=== PATIENT | female | born 2000 | race Caucasian/White ===

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

== ENCOUNTER 2018-08-25 11:40 | Emergency (ER) | payer OTHER ==
[2018-08-25 12:03] VITALS: BP 104/64; PULSE 92; TEMP 98.7; BMI 27.1
--- NOTE | 2018-08-25 12:21 | PDOC ---
History of Present Illness - General Chief Complaint: Vaginal Bleeding Stated Complaint: VAGINAL BLEEDING/POSTIVE PREG Time Seen by Provider: 08/25/18 12:21 History Source: Patient Exam Limitations: No Limitations - History of Present Illness Initial Comments: 08/25/18 12:38 CHIEF COMPLAINT: Vaginal bleeding HISTORY OF PRESENT ILLNESS: This is an otherwise healthy 17-year-old LMP who presents to the ED for evaluation of vaginal bleeding with clots and mild lower abdominal cramping. The patient states that she had a positive urine test at home and again at [facility]. She has not yet had an ultrasound for this . She notes a history of frequent UTIs. REVIEW OF SYSTEMS: GENERAL/CONSTITUTIONAL: No fever or chills. No weakness. HEAD, EYES, EARS, NOSE AND THROAT: No change in vision. No ear pain or discharge. No sore throat. CARDIOVASCULAR: No chest pain or shortness of breath. RESPIRATORY: No cough, wheezing, or hemoptysis. GASTROINTESTINAL: No nausea, vomiting, diarrhea. Lower abdominal cramping. GENITOURINARY: Vaginal bleeding with clots since yesterday. MUSCULOSKELETAL: No joint or muscle swelling or pain. No neck or back pain. SKIN: No rash. NEUROLOGIC: No headache, vertigo, loss of consciousness, or change in strength/ sensation. ENDOCRINE: No increased thirst. No abnormal weight change. HEMATOLOGIC/LYMPHATIC: No anemia, easy bleeding, or history of blood clots. ALLERGIC/IMMUNOLOGIC: No hives or skin allergy. PHYSICAL EXAM: GENERAL: Awake, alert, and fully oriented, in no acute distress. HEAD: No signs of trauma, normocephalic. EYES: EOMI, PERRL, conjunctiva clear ENT: Oropharynx clear without exudates. Moist mucosa. NECK: Normal ROM, supple. LUNGS: No distress, speaks full sentences, clear to auscultation bilaterally. HEART: Regular rate and rhythm, normal S1 and S2, no murmurs, rubs or gallops, peripheral pulses normal and equal bilaterally. ABDOMEN: Soft, nontender, normoactive bowel sounds. No guarding, no rebound. No masses. EXTREMITIES : Normal inspection, Normal range of motion, no edema. No clubbing or cyanosis. slight hand tremor, equal bilateral pulses. NEUROLOGICAL: Cranial nerves II through XII grossly intact. Normal speech, no focal sensorimotor deficits. SKIN: Warm, Dry, normal turgor, no rashes or lesions noted. [employer]: Normal external exam. Cervix closed. Scant blood in vaginal vault. Past History - Past Medical History Allergies/Adverse Reactions: Allergies Allergy/AdvReac Type Severity Reaction Status Date / Time No Known Allergies Allergy Verified 08/25/18 12:01 Home Medications: Ambulatory Orders No Home Medications 0 dose .ROUTE UTDICT 04/17/12 Ibuprofen [Motrin] 600 mg PO TID #30 tablet 07/19/16 Ondansetron [Zofran *Odt*] 4 mg SL TID #30 od.tablet 07/19/16 Sulfamethoxazole/Trimethoprim [Bactrim *Ds*] 1 tab PO BID #14 tablet 07/19/16 COPD: No Kidney Stones: Yes (kidney INFECTIONS) - Immunization History Immunization Up to Date: Yes - Suicide/Smoking/Psychosocial Hx Smoking Status: No Smoking History: Never smoked Have you smoked in the past 12 months: No Number of Cigarettes Smoked Daily: 0 Hx Alcohol Use: No Drug/Substance Use Hx: No Substance Use Type: None *Physical Exam - Vital Signs Last Vital Signs Temp Pulse Resp BP Pulse Ox 98.7 F 92 H 20 104/64 100 08/25/18 12:01 08/25/18 12:01 08/25/18 12:01 08/25/18 12:01 08/25/18 12:01 Moderate Sedation - Procedure Monitoring Vital Signs: Procedure Monitoring Vital Signs Temperature 98.7 F 08/25/18 12:01 Pulse Rate 92 H 08/25/18 12:01 Respiratory Rate 20 08/25/18 12:01 Blood Pressure 104/64 08/25/18 12:01 O2 Sat by Pulse Oximetry (%) 100 08/25/18 12:01 ED Treatment Course - LABORATORY CBC & Chemistry Diagram: 08/25/18 12:30 08/25/18 12:30 Medical Decision Making - Medical Decision Making 08/25/18 12:42 A/P: Healthy 17-year-old female with first trimester vaginal bleeding. 1. Labs including CBC, bhcg, T&S 2. UA/culture 3. Transvaginal u/s 4. Patient declines analgesia 5. Re-assess 08/25/18 15:09 U/s reviewed: tiny intrauterine gestation sac compatible with 4 wks 5 days gestation. No yolk sac or pole identified. [facility] [place] [facility]. Advised patient to follow up for repeat lab work and u/s in 1 wk for correlation. *DC/Admit/Observation/Transfer Diagnosis at time of Disposition: Threatened - Discharge Dispostion Disposition: HOME Condition at time of disposition: Stable Decision to Admit order: No - Referrals Referrals: Marisol Glynn MD [Staff Physician] - - Patient Instructions Printed Discharge Instructions: DI for Vaginal Bleeding During Additional Instructions: -Rest and stay well-hydrated -No sexual activity while bleeding continues -Take Tylenol as needed for pain (no Motrin) -Follow up with [facility] or our client services analyst (referral enclosed) -You will need a repeat ultrasound in blood work in one week to verify normal progression - you may return here if unable to schedule this outpatient -Return here if bleeding more than one pad per hour or any other concerning symptoms - Post Discharge Activity
[2018-08-25 13:08] LABS: BASO % 0.6 % (0-2.0); HEMATOCRIT 39.8 % (32.4-45.2); HEMOGLOBIN 13.8 GM/dL (10.7-15.3); MCH 31.8 pg (25.7-33.7); MCHC 34.7 g/dl (32.0-36.0); MEAN CELL VOLUME 91.7 fl (80-96); MEAN PLT VOLUME 9.6 fl (7.5-11.1); NEUT % 66.4 % (42.8-82.8); PLATELET COUNT 167 K/MM3 (134-434); RBC 4.34 M/mm3 (3.60-5.2); RDW 13.2 % (11.6-15.6); WHITE BLOOD COUNT 5.2 K/mm3 (4.0-10.0)
[2018-08-25 13:29] LABS: URINE APPEARANCE SLCLOUDY; URINE BILIRUBIN NEGATIVE (<2.0 mg/dL); URINE COLOR YELLOW; URINE GLUCOSE (UA) NEGATIVE (NEGATIVE); URINE KETONE 1+ (NEGATIVE); URINE LEUK ESTERASE NEGATIVE (NEGATIVE); URINE NITRITE NEGATIVE (NEGATIVE); URINE PROTEIN 1+ (NEGATIVE); URINE UROBILINOGEN NEGATIVE mg/dL (0.2-1.0)
[2018-08-25 13:39] LABS: ALBUMIN 4.4 g/dl (3.4-5.0); ALK PHOS 59 U/L (45-117); ANION GAP 9 MMOL/L (8-16); BILIRUBIN,TOTAL 0.5 mg/dL (0.2-1); BLOOD UREA NITROGEN 14 mg/dL (7-18); CALCIUM 8.8 mg/dL (8.5-10.1); CHLORIDE 108 mmol/L (98-107); CO2 23 mmol/L (21-32); CREATININE 0.8 mg/dL (0.55-1.3); GLUCOSE,RANDOM 84 mg/dL (74-106); POTASSIUM 3.8 mmol/L (3.5-5.1); SGOT/AST 15 U/L (15-37); SGPT/ALT 19 U/L (13-61); SODIUM 140 mmol/L (136-145); TOT PROT 7.7 g/dl (6.4-8.2)
[2018-08-25 14:56] LABS: EPI CELLS FEW /HPF (FEW); URINE MUCUS MANY
== END 2018-08-25 15:17 | disposition home or self-care (01) ==
LOC: JER 11:40
DX: O26.891 Other specified pregnancy related conditions, first trimester (principal); O20.0 Threatened abortion; Z3A.01 Less than 8 weeks gestation of pregnancy
CPT/HCPCS: 36415; 76801-TC; 80053; 81003; 81015; 84702; 85025; 86850; 86900; 86901; 87077; 87086; 99281-25